=== PATIENT | male | born 1980 | race Caucasian/White ===

== ENCOUNTER 2021-04-29 17:00 | Outpatient (CLI) | payer OTHER, SELFPAY ==
[2021-04-29 16:53] VITALS: BP 118/73; PULSE 101; RESP 18; TEMP 38.8; O2SAT 98; BMI 31.2
[2021-04-29 17:58] VITALS: BP 130/77; PULSE 94; RESP 18; TEMP 38.5; O2SAT 97
[2021-04-29 18:58] VITALS: BP 124/78; PULSE 93; RESP 18; TEMP 39.3
== END 2021-04-29 17:01 | disposition home or self-care (01) ==
LOC: OPS 17:09
PROVIDERS: Visit Provider Nurse Practitioner Family
DX: U07.1 COVID-19 (principal)
CPT/HCPCS: 96365

== ENCOUNTER 2021-05-10 16:09 | Outpatient (CLI) | payer OTHER, SELFPAY ==
[2021-05-10 16:48] LABS: Basophils # 0.1 10^3/uL (0.0-0.1); Basophils % 0.7 %; Eosinophils # 0.2 10^3/uL (0.0-0.8); Eosinophils % 1.7 %; Hemoglobin 14.7 g/dL (11.7-16.6); Lymphocytes # 1.6 10^3/uL (0.8-4.8); Lymphocytes % 18.9 %; Mean Corpuscular HGB Conc 33.4 g/dL (30.0-36.0); Mean Corpuscular Hemoglobin 30.4 pg (28.0-34.0); Mean Corpuscular Volume 90.9 fl (80-94); Mean Platelet Volume 10.4 fL (7.4-10.4); Monocytes # 0.6 10^3/uL (0.2-0.9); Neutrophils # 6.21 10^3/uL (1.8-7.7); Neutrophils % 71.4 %; Nucleated Red Blood Cells % 0 %; Platelet Count 290 10^3/cmm (130-400); Red Blood Count 4.84 10^6/uL (4.1-5.3); Red Cell Distribution Width 12.6 % (12.1-15.1); White Blood Count 8.7 10^3/uL (4.0-10.0)
[2021-05-10 17:10] LABS: Bilirubin Urine Neg (Negative); Blood Urine Neg (Negative); Glucose Urine UA Norm (Normal); Ketones Urine Negative (Negative); Nitrate Urine Negative (Negative); Protein Urine Neg (Negative); Specific Gravity, Urine 1.005 (1.005-1.030); Urine Appearance Clear (CLEAR); Urine Color Yellow (Yellow); Urobilinogen Urine Norm (Negative); pH Urine 5 (5-7)
[2021-05-10 17:11] LABS: Add Urine Culture? No; Bacteria Urine TRACE /hpf; Leukocyte Esterase Urine Negative (Negative); Mucus Urine TRACE /hpf
[2021-05-10 17:13] LABS: Erythrocyte Sedimentation Rate 7 mm/hr (0-10)
[2021-05-10 17:15] LABS: Alanine Aminotransferase 49 U/L (0-41); Albumin Level 4.8 g/dL (3.5-5.2); Alkaline Phosphatase 60 IU/L (40-130); Aspartate Amino Transferase 22 U/L (0-40); C Reactive Protein 6.7 mg/L (0.0-4.9); Total Bilirubin 0.2 mg/dL (0.15-1.2); Total Protein 7.8 g/dL (6.6-8.7)
[2021-05-10 17:16] LABS: Urine Creatinine 30 mg/dL (39-259); Urine Protein Random 4 mg/dL
[2021-05-10 17:34] LABS: Complement C3 112 mg/dL (90-180)
[2021-05-10 17:47] LABS: Hepatitis B Core AB, Total Non-Reactive (Nonreactive); Hepatitis B Surface Antigen Non-Reactive (Nonreactive); Hepatitis C Virus Antibody Non-Reactive (Nonreactive)
[2021-05-12 11:37] LABS: COMPLEMENT COMPONENT C3C 116 mg/dL (82-185); COMPLEMENT COMPONENT C4C 36 mg/dL (15-53)
[2021-05-12 11:47] LABS: COMPLEMENT, TOTAL (CH50) 60 U/mL (31-60)
[2021-05-12 14:03] LABS: THYROID PEROXIDASE ANTIBODIES 262 IU/mL (<9)
[2021-05-12 15:07] LABS: Quantiferon Mitogen 7.78 IU/mL; Quantiferon Nil 0.08 IU/mL; Quantiferon Plus TB2 0.01 IU/mL; Quantiferon TB Gold NEGATIVE (NEGATIVE)
[2021-05-12 15:12] LABS: Cyclic Citrullinated Peptide <16 UNITS
[2021-05-12 18:58] LABS: CENTROMERE B ANTIBODY <1.0 NEG AI (<1.0 NEG); JO-1 ANTIBODY <1.0 NEG AI (<1.0 NEG); RNP ANTIBODY <1.0 NEG AI (<1.0 NEG); SCL-70 ANTIBODY <1.0 NEG AI (<1.0 NEG); SJOGREN'S ANTIBODY (SS-A) <1.0 NEG AI (<1.0 NEG); SM ANTIBODY <1.0 NEG AI (<1.0 NEG); SS-B <1.0 NEG AI (<1.0 NEG)
[2021-05-13 15:47] LABS: ANA PATTERN Nuclear, Speckled; ANA SCREEN, IFA POSITIVE (NEGATIVE); ANA TITER 1:40 titer
[2021-05-18 10:34] LABS: DNA AB (DS) CRITHIDIA,IFA NEGATIVE (NEGATIVE)
== END 2021-05-10 16:10 | disposition home or self-care (01) ==
LOC: LAB 16:16
PROVIDERS: Visit Provider Internal Medicine Rheumatology
DX: M19.90 Unspecified osteoarthritis, unspecified site (principal); I77.6 Arteritis, unspecified; R76.8 Other specified abnormal immunological findings in serum; Z79.899 Other long term (current) drug therapy; Z11.59 Encounter for screening for other viral diseases; M45.6 Ankylosing spondylitis lumbar region
CPT/HCPCS: 36415; 80076; 81001; 82565; 82570; 84156; 85025; 85651; 86140; 86160; 86162; 86200; 86235; 86255; 86376; 86431; 86480; 86704; 86803; 86812; 87340

== ENCOUNTER → 2021-10-06 09:11 | Outpatient (BNVA) | payer OTHER, SELFPAY | PROVIDERS: Visit Provider Family Medicine | DX: E03.9 Hypothyroidism, unspecified (principal); I86.1 Scrotal varices; R76.8 Other specified abnormal immunological findings in serum; Z76.89 Persons encountering health services in other specified circumstances; Z71.1 Person with feared health complaint in whom no diagnosis is made | CPT/HCPCS: 80053; 80061; 84439; 84443 ==